=== PATIENT | female | born 1930 | race Caucasian/White ===

== ENCOUNTER 2017-01-07 10:47 | Inpatient (IN) | payer OTHER ==
[~2017-01-07] VITALS: Ht 160 cm; Wt 76.5 kg
[~2017-01-07 10:47] MED LIST: ALVESCO6.1 G1 INH; BENICAR40 MG PO; CATAPRES 0.1MG0.1 MG PO; CATAPRES0.1 MG PO; CLONAZEPAM1 MG PO; CORGARD20 MG PO; DETROL LA4 MG PO; IMIPRAMINE HCL50 MG PO; LIPITOR TAB 1010 MG PO; NEURONTIN 300300 MG PO; NORVASC 5 MG TAB5 MG PO; OMNICEF 300 MG300 MG PO; PLAVIX 75 MG TA75 MG PO; PROLIA INJ60 MG/1 ML SQ; PROTONIX 40 MG40 M1 PO; SULFAZINE500 MG PO; SYNTHROID 125125 MCG PO; ULTRAM50 MG PO; VITAMIN D50000 UNIT PO
[2017-01-07 12:05] LABS: HEMOGLOBIN 12.5 gm/dl (12.3-15.3); RED BLOOD COUNT 4.63 M/UL (4.00-5.10)
[2017-01-08 04:37] LABS: HEMOGLOBIN 10.2 gm/dl (12.3-15.3); RED BLOOD COUNT 3.86 M/UL (4.00-5.10); WHITE BLOOD COUNT 8.6 K/UL (4.5-11.0)
[2017-01-08 04:52] LABS: BUN/CREATININE RATIO 28 (0-10)
[2017-01-09 04:23] LABS: HEMOGLOBIN 9.6 gm/dl (12.3-15.3); RED BLOOD COUNT 3.61 M/UL (4.00-5.10); WHITE BLOOD COUNT 9.3 K/UL (4.5-11.0)
[2017-01-09 04:45] LABS: BUN/CREATININE RATIO 17 (0-10)
[2017-01-10 04:30] LABS: HEMOGLOBIN 10.2 gm/dl (12.3-15.3); RED BLOOD COUNT 3.81 M/UL (4.00-5.10); WHITE BLOOD COUNT 8.4 K/UL (4.5-11.0)
[2017-01-10 04:53] LABS: BUN/CREATININE RATIO 10 (0-10)
[2017-01-11 04:29] LABS: HEMOGLOBIN 9.8 gm/dl (12.3-15.3); RED BLOOD COUNT 3.67 M/UL (4.00-5.10); WHITE BLOOD COUNT 8.5 K/UL (4.5-11.0)
[2017-01-11 04:53] LABS: BUN/CREATININE RATIO 10 (0-10)
[2017-01-12 04:08] LABS: HEMOGLOBIN 10.5 gm/dl (12.3-15.3); RED BLOOD COUNT 3.96 M/UL (4.00-5.10); WHITE BLOOD COUNT 9.2 K/UL (4.5-11.0)
[2017-01-12 04:26] LABS: BUN/CREATININE RATIO 10 (0-10)
[2017-01-12] MEDS ORDERED: LEVAQUIN TAB 5500 MG PO (13:14)
[2017-01-12] MEDS ORDERED: VENTOLIN/PROVE0.5 ML INH (13:22)
== END 2017-01-12 15:40 | disposition home health service (06) | DRG 190 ==
LOC: ER1 10:47 → PROG CARE 15:27 → ZEROF 15:27 → PROG CARE 01-08 04:00
PROVIDERS: Emergency Medicine; ADMIT Internal Medicine
DX: J44.0 Chronic obstructive pulmonary disease with (acute) lower respiratory infection (principal); J18.9 Pneumonia, unspecified organism; G93.41 Metabolic encephalopathy; J45.901 Unspecified asthma with (acute) exacerbation; I69.354 Hemiplegia and hemiparesis following cerebral infarction affecting left non-dominant side; K51.90 Ulcerative colitis, unspecified, without complications; E87.1 Hypo-osmolality and hyponatremia; I10 Essential (primary) hypertension; E87.70 Fluid overload, unspecified; S82.842D Displaced bimalleolar fracture of left lower leg, subsequent encounter for closed fracture with routine healing; W19.XXXD Unspecified fall, subsequent encounter; E86.0 Dehydration; E87.6 Hypokalemia; M81.0 Age-related osteoporosis without current pathological fracture; E78.00 Pure hypercholesterolemia, unspecified; M51.37 Other intervertebral disc degeneration, lumbosacral region; R32 Unspecified urinary incontinence; R15.9 Full incontinence of feces; Z87.891 Personal history of nicotine dependence; Z66 Do not resuscitate; Z74.01 Bed confinement status; Z79.02 Long term (current) use of antithrombotics/antiplatelets; Z79.1 Long term (current) use of non-steroidal anti-inflammatories (NSAID); Z79.899 Other long term (current) drug therapy; Z82.49 Family history of ischemic heart disease and other diseases of the circulatory system; Z83.3 Family history of diabetes mellitus
CPT/HCPCS: 36415; 71010; 74230; 80048; 80053; 81001; 82550; 82553; 83605; 83874; 84132; 84484; 85025; 85027; 85610; 85730; 87040; 92611-GN; 93005; 94640; 96361; 96365; 96366; 96367; 97110; 97530; 97535; 99291; J0456; J0696; J1650; J1940; J1956; J2543; J7030; J7040; J7050

== ENCOUNTER 2017-01-17 17:44 | Emergency (ER) | payer OTHER ==
[~2017-01-17 17:44] MED LIST changes: +LEVAQUIN TAB 5500 MG PO; +VENTOLIN/PROVE0.5 ML INH
[2017-01-17 20:37] LABS: HEMOGLOBIN 11.2 gm/dl (12.3-15.3); RED BLOOD COUNT 4.22 M/UL (4.00-5.10); WHITE BLOOD COUNT 11.9 K/UL (4.5-11.0)
[2017-01-17 20:57] LABS: BUN/CREATININE RATIO 15 (0-10)
== END 2017-01-18 01:10 | disposition home or self-care (01) ==
LOC: ER1 17:44
PROVIDERS: Family Medicine
DX: R05 Cough (principal); R06.2 Wheezing; Z74.01 Bed confinement status; Z99.81 Dependence on supplemental oxygen; Z87.891 Personal history of nicotine dependence
CPT/HCPCS: 36415; 36600; 70450; 71250; 80053; 82550; 82553; 82803; 83605; 83874; 83880; 84484; 85025; 87040; 93005; 94664; 96360; 96361; 99284